=== PATIENT | female | born 1940 | race Caucasian/White ===

== ENCOUNTER 2022-08-13 17:47 | Emergency (ER) | payer MEDICARE, MEDICAID ==
[~2022-08-13] VITALS: Ht 154.9 cm; Wt 68.0 kg
[2022-08-13 18:09] VITALS: BP_SYST 138
--- NOTE | 2022-08-13 18:09 | NUR ---
Patient BIB daughter from home. Chief complaint: Painful cough in chest and blood in sputum. Patient a&ox4 and stable. Daughter at bedside. Patient stable and a&ox4 placed on the monitor and bedrails up
--- NOTE | 2022-08-13 18:12 | NUR ---
Patient to ER bed 8 to gown for evaluation. Side rails up. Report given to FRANK ESQUIVEL.
--- NOTE | 2022-08-13 18:16 | NUR ---
ER Dr. Handley at bedside examining patient.
[2022-08-13] MEDS ORDERED: ALBUTEROL SULFATE 0.083% 2.5 MG/3 ML VIAL.NEB INH ONE (18:30)
--- NOTE | 2022-08-13 18:47 | NUR ---
Respiratory therapy at bedside now.
--- NOTE | 2022-08-13 18:54 | NUR ---
COVID SWAB TAKEN TO LAB
--- NOTE | 2022-08-13 19:00 | NUR ---
SPUTUM CULTURE TAKEN TO LAB
[2022-08-13 19:05] LABS: BASOPHILS # (AUTO) 0.1 K/uL (0.0-0.2); BASOPHILS % (AUTO) 1.1 % (0.0-2.0); EOSINOPHILS # (AUTO) 0.3 K/uL (0.0-0.4); EOSINOPHILS % (AUTO) 6.1 % (0.0-4.0); HEMATOCRIT 35.6 % (36-48); HEMOGLOBIN 12.5 g/dL (12.0-16.0); LYMPHOCYTES # (AUTO) 1.1 K/uL (1.0-5.5); LYMPHOCYTES % (AUTO) 23.8 % (20.5-51.5); MEAN CORPUSCULAR HEMOGLOBIN 33 pg (27-31); MEAN CORPUSCULAR HGB CONC 35 % (32-36); MEAN CORPUSCULAR VOLUME 95 fL (79.0-98.0); MONOCYTES # (AUTO) 0.5 K/uL (0.0-1.0); NEUTROPHILS # (AUTO) 2.8 K/uL (1.8-7.7); PLATELET COUNT (AUTO) 178 K/uL (130-430); RED BLOOD CELL COUNT(AUTO) 3.75 MIL/uL (4.2-6.2); RED CELL DISTRIBUTION WIDTH 13.9 % (9.0-15.0); WHITE BLOOD COUNT (AUTO) 4.8 K/uL (4.8-10.8)
--- NOTE | 2022-08-13 19:07 | NUR ---
MAYRA COLLECTED AND TAKEN TO LABS
[2022-08-13 19:10] LABS: ALANINE AMINOTRANSFERASE 59 U/L (12-78); ALBUMIN 3.2 g/dL (3.4-4.8); ANION GAP 5 (5-15); ASPARTATE AMINOTRANSFERASE 61 U/L (10-37); CALCIUM 9.1 mg/dL (8.4-11.0); CHLORIDE 97 mmol/L (98-107); CREATININE 0.82 mg/dL (0.55-1.30); GLUCOSE 133 mg/dL (70-99); UREA NITROGEN, BLOOD 15 mg/dL (8-21)
--- NOTE | 2022-08-13 19:25 | NUR ---
Report given to Liliana MRAIE
--- NOTE | 2022-08-13 19:34 | NUR ---
DR. OGDEN IN BED 8 RE-EXAMINING THE PATIENT AND DISCUSSING TEST RESULTS.
[2022-08-13] MEDS ORDERED: DOCU-144 PO (19:46)
[2022-08-13] MEDS ORDERED: INSU100V53 (19:46)
[2022-08-13] MEDS ORDERED: NA P133E41 RC (19:46)
[2022-08-13] MEDS ORDERED: FERR-69 PO (19:46)
[2022-08-13] MEDS ORDERED: LOVI40 SQ (19:46)
--- NOTE | 2022-08-13 19:54 | NUR ---
Patient taken to CT.
[2022-08-13] MEDS ORDERED: iohexoL 350 mgI/mL, 100 ML INFUS..BTL IV ONE (20:02)
--- NOTE | 2022-08-13 20:15 | NUR ---
PATIENT IS BACK FROM CT.
[2022-08-13 21:18] LABS: BILIRUBIN,URINE NEGATIVE (NEGATIVE); CLARITY/URINE CLEAR (CLEAR); COLOR,URINE YELLOW (YELLOW); GLUCOSE,URINE NEGATIVE (NEGATIVE); KETONES,URINE NEGATIVE (NEGATIVE); LEUKOCYTE ESTERASE ,URINE NEGATIVE (NEGATIVE); NITRITE, URINE NEGATIVE (NEGATIVE); PH,URINE 7.5 (5.0-8.0); PROTEIN URINE NEGATIVE (NEGATIVE); UROBILINOGEN,URINE 0.2 (0.2-1.0)
[2022-08-13 21:19] LABS: BLOOD, URINE TRACE (NEGATIVE)
[2022-08-13 21:30] LABS: BACTERIA,URINE FEW /HPF (None Seen); MUCUS,URINE None Seen /LPF (None Seen); RBC,URINE 0-3 /HPF (0-3); WBC,URINE NONE SEEN /HPF (0-3)
[2022-08-13] MEDS ORDERED: LEVO750T64 PO (22:07)
[2022-08-13] MEDS ORDERED: INHA1EAC52 MC (22:07)
[2022-08-13] MEDS ORDERED: ALBMDI INH (22:07)
[2022-08-13] MEDS ORDERED: GUAI100S14 PO (22:07)
--- NOTE | 2022-08-13 22:10 | NUR ---
Dr. Handley is at bedside giving discharge instructions.
[2022-08-13 22:30] VITALS: BP_SYST 136
--- NOTE | 2022-08-13 22:31 | NUR ---
Patient given written and verbal discharge instructions and verbalizes understanding. ER MD discussed with patient the results and treatment provided. Patient in stable condition. ID arm band removed. IV catheter removed intact and dressing applied, no active bleeding. Rx of ALBUTEROL, GUAIFENESIN, LEVOFLOXACIN given. Patient educated on pain management and to follow up with PMD. Pain Scale 0/10. Opportunity for questions provided and answered. Medication side effect fact sheet provided.
--- NOTE | 2022-08-14 15:28 | NUR ---
RECEIVED RESULTS THAT SPUTUM CULTURE NOT ABLE TO BE PERFORMED BECAUSE IT IS CONTAMINIATED WITH SALIVA. RESULTS GIVEN TO DR. SHANE. PER , NO NEW ORDERS.
== END 2022-08-13 22:30 | disposition home or self-care (01) ==
LOC: SED 17:47
DX: J20.9 Acute bronchitis, unspecified (principal); R07.89 Other chest pain; E87.1 Hypo-osmolality and hyponatremia; J18.9 Pneumonia, unspecified organism; R04.2 Hemoptysis; R05.9 Cough, unspecified; Z79.4 Long term (current) use of insulin; Z79.899 Other long term (current) drug therapy; Z20.822 Contact with and (suspected) exposure to COVID-19
CPT/HCPCS: 80053; 81000; 83880; 85025; 85379; 87070; 87205; 84484; 36415; 71045; 71275; 76376; 94640; 99285; 87426; Q9967; J7613